=== PATIENT | male | born 2000 | race Caucasian/White ===

== ENCOUNTER 2024-11-20 12:47 | Emergency (ER) | payer OTHER, SELFPAY ==
[2024-11-20 12:52] VITALS: BP 138/86
[2024-11-20 13:58] VITALS: BP 148/77
[2024-11-20 13:58] LABS: Glucose - Point of Care 151 mg/dl (70-99)
[2024-11-20 14:00] VITALS: BP 147/85
[2024-11-20 14:01] VITALS: BP 148/88
[2024-11-20 14:03] VITALS: BP 147/85; BP 148/77; BP 148/88; PULSE 56; PULSE 66; PULSE 72
--- NOTE | 2024-11-20 14:17 | ED.GENMED ---
History of Present Illness
General
Chief Complaint: Fainting/Passed Out
Source: patient
Exam Limitations: none
Time Seen by Provider: 11/20/24 13:19
Nursing documentation reviewed up to this point in time: agreed with
History of Present Illness
History of Present Illness:
pt is a 24 y/o M with h/o anxiety
says he was at a PCP office for routine visit and had blood work
felt fine but then got lightheaded immediately after; the RN left to get him water and he passed out falling forward off the chair onto the floor, striking his face
woke up and now is baseline
has facial pain L head/orbit/L jaw
mild nausea now; mild headache
no neck pain, vomiting, confusion,w eakness, numbness
no h/o syncope in the past
no sudden family history
doesnt usually get queasy with blood
Past History
Past History
ED Past Medical History: Psychiatric
ED Past Surgical History: None
Social History
Tobacco: Non-smoker
Alcohol: None
Drug: None
Family History
Family History: Hypertension
Review of Systems
Review of Systems
Allergies reviewed?: Yes
All Other Systems: Not applicable
Phy Exam
Physical Exam
Physical Exam:
GENERAL: Alert , in no apparent distress, well appearing
HEAD: NCAT
face: left superior and inferior orbital tendenres, mild redness, mild STS
EYE: pupils equal and reactive, EOMS intact
NECK: Supple
ENT: o/p clr, mmm.
CARDIAC: Regular rate and rhythm .
LUNGS: Clear breath sounds bilaterally, no acute respiratory distress, no wheezes/rales/rhonchi
ABDOMEN: Soft, without focal tenderness, no r/g, no cvat, normal bowel sounds
NEUROLOGICAL: Alert and oriented, no focal neuro deficits, cn intact, 5/5 strength, esnsation intact
SKIN: Warm and dry, skin intact.
redness above and below L orbit
MUSCULOSKELETAL: No edema, well perfused. neg petr's sign
PSYCH: Normal and appropriate interaction.
Course
Orders/Labs/Results
Orders:
Orders
11/20/24 12:55
Electrocardiogram (*1) Urgent
Reason for Study: Syncope
EKG- Treatment ONCE
11/20/24 13:49
CT Facial Bones W/o Iv Contras Urgent
Comment:
Reason For Exam: passed out, hit L face
11/20/24 13:50
CT Head W/o Iv Contrast Urgent
Comment:
Reason For Exam: passed out, hit head
Bedside Glucose- Treatment ONCE
Orthostatic VS- Treatment ONCE
Abnormal Lab Results
11/20/24
13:57
POC Glucose 151 H mg/dl
(70-99)
Vital Signs
Initial and Last Documented VS:
Initial Vital Signs
Temp Pulse Resp BP Pulse Ox
36.6 C 60 18 138/86 100
11/20/24 12:52 11/20/24 12:52 11/20/24 12:52 11/20/24 12:52 11/20/24 12:52
Last Documented Vital Signs
Temp Pulse Resp BP Pulse Ox
36.6 C 71 12 148/88 100
11/20/24 12:52 11/20/24 14:01 11/20/24 14:01 11/20/24 14:01 11/20/24 14:20
MDM/Problems Addressed
Differential Diagnosis Includes:
vasovagal syncope, facial contusion
MDM/Problems Addressed:
24 y/o M syncope after blood draw this morning
woke up on the ground
facial pain, nausea
no neck pain
full painless neck ROM
mild headache
no other sequelae of concussion
bortial mild tenderness
ekg sinus jeffy
no ischemic changes
orthos neg
blood glucose normal
returned to baseline
pending ct, will be d/c home
*Pulse Oximetry
SaO2: 100
Oxygen Mode of Delivery: Room air
ED Attending Note
-
Portions of this chart may have been created with voice recognition software.� Occasional wrong word or��sound alike� substitutions may have occurred due to the inherent limitations of voice recognition software.
Discharge Plan
Departure
Patient Disposition: Home (Routine Discharge)
Date of Disposition: 11/20/24
Time of Disposition: 15:21
Patient with high blood pressure during this ER visit?: No
Condition: Fair
Covid-19: Not Applicable
Discharge Problem:
Syncope, Minor closed head injury
Prescriptions:
No Action
No Current Medications
0
Referrals:
Pedrito Ponce, DO [Family Provider, Family Practice] - Follow up in 2-3 days
Activity Restrictions/Additional Instructions:
YOU PROBABLY HAVE A MINOR HEAD INJURY AND LESS LIKELY A TRUE CONCUSSOIN FROM THE FALL
BUT IF YO UHAVE HEADACHE/NAUSEA TODAY THEN LIMIT YOUR PHONE, TV, COMPUTER, READING
TAKE TYLENOL OR MOTRIN FOR PAIN
ICE OFF AN DON TO YOUR FACE
AFTER 24-48 HOURS OF BRAIN REST, YOU CAN RETURN TO NORMAL ACTIVITY
THERE WAS NO FACIAL BONE FRACTURE ON CAT SCAN
RETURN FOR ANY CONCERNS
IF YOU FEEL LIGHTHEADED, MAKE SURE TO LWOER YOURSELF TO THE GROUND TO HOPEFULLY AVOID PASSING OUT
Interventions
Interventions:
*Risk Screen - Suicide Last Done: 11/20/24 12:52
*General Assessment Last Done: 11/20/24 12:52
*Neglect/Abuse Screening Last Done: 11/20/24 12:52
*ED- Fall Risk Assessment Last Done: 11/20/24 13:50
*ED COVID-19 Vaccine History Last Done: 11/20/24 13:50
ED- Cardiac Assessment Last Done: 11/20/24 13:50
ED- Neurological Assessment Last Done: 11/20/24 13:50
Discharge Date and Time
Print Language: ITALIAN
== END 2024-11-20 15:50 | disposition home or self-care (01) ==
LOC: EMR 12:47
PROVIDERS: EMERGENCY PHYSICIAN Emergency Medicine; FAMILY PHYSICIAN Family Medicine
DX: S09.90XA Unspecified injury of head, initial encounter (principal); W07.XXXA Fall from chair, initial encounter; R55 Syncope and collapse
CPT/HCPCS: 99285; 70450; 70486; 82962; 93005